=== PATIENT | female | born 1960 | race Caucasian/White ===

== ENCOUNTER 2016-10-11 20:21 | Emergency (ER) | payer BC ==
[~2016-10-11] VITALS: Ht 160 cm; Wt 77.3 kg
[2016-10-11 20:25] VITALS: TEMP 97.6
[2016-10-11] MEDS ORDERED: ESTRACE 1MG1 MG/TAB PO (20:28)
[2016-10-11] MEDS ORDERED: CLARITIN 1010 MG/TAB PO (20:29)
[2016-10-11] MEDS ORDERED: VALIUM 2MG T2 MG/TAB PO (20:54)
[2016-10-11 21:40] LABS: CALCIUM 9.1 mg/dL (8.4-10.2); CREATININE, serum 0.66 mg/dL (0.52-1.25); POTASSIUM 3.9 mmol/L (3.4-5.0)
[2016-10-11 21:54] VITALS: BP 128/77; PULSE 54
== END 2016-10-11 22:06 | disposition home or self-care (01) ==
LOC: COL.ER 20:21
PROVIDERS: Emergency Medicine
DX: R42 Dizziness and giddiness (principal)
CPT/HCPCS: J2405; J7030